=== PATIENT | female | born 1945 | race Caucasian/White ===

== ENCOUNTER 2016-08-17 15:00 | Inpatient (IN) | payer MEDICARE, OTHER ==
[~2016-08-17] VITALS: Ht 166.6 cm; Wt 73.2 kg
--- NOTE | ~2016-08-17 | DS ---
PATIENT'S NAME: SELENE CALIXTO [facility] AGE: 71 Y [address] ROOM: [address] [address] LOCATION: [facility] ADMIT DATE: 08/21/2016 Discharge Summary DISCHARGE DATE: 08/23/2016 FAMILY PHYSICIAN: Wendy Moulton ATTENDING PHYSICIAN: Marylin Ceron REASON FOR ADMISSION: The patient was a scheduled admission for an elective procedure. The procedure was lumbar laminectomy. The patient had presented with back pain radiating down the leg. TREATMENT RENDERED: The patient was taken to the operating room. She underwent laminectomy and decompression of her lumbar spinal nerves. The procedure was uncomplicated. The patient's postoperative course was uneventful. She did well and was released home on August 23, 2016. I will follow up her off in [place] when I go there in September. FINAL DIAGNOSIS: Lumbar spinal stenosis, status post lumbar laminectomy. MD LALITA SMYTH/jonyl /[id number] d: 08/27/16 0025 t: 09/07/16 0833, DISCHARGE SUMMARY
--- NOTE | ~2016-08-17 | OR ---
PATIENT'S NAME: SELENE CALIXTO [facility] AGE: 71 Y [address] ROOM: [address] [address] LOCATION: [facility] ADMIT DATE: 08/21/2016 OR/Procedure Report DISCHARGE DATE: FAMILY PHYSICIAN: Wendy Moulton ATTENDING PHYSICIAN: Marylin Ceron SURGEON: Marylin Ceron MD IMAGING ASSISTANT: Nasreen Norris. DATE OF PROCEDURE: 08/21/2016 PREOPERATIVE DIAGNOSIS: Lumbar spinal stenosis. POSTOPERATIVE DIAGNOSIS: Lumbar spinal stenosis. PROCEDURES PERFORMED: 1. Bilateral laminectomy with decompression of neural elements and foraminotomy without diskectomy at L3-4. 2. Bilateral laminectomy with decompression of neural elements and foraminotomy without diskectomy at L4-5. 3. Use of operative microscope. ANESTHESIA: General. ANESTHESIA PROVIDER: Henrique Weeks M.D. HISTORY: The patient is a 71-year-old female who presented with lower back and left leg pain. Symptoms have been present for at least 3 years. She had MRIs done in 2013 and more recently in July of this year. The more recent study showed progression of the stenosis compared to the earlier MRI. Given the patient's unrelenting symptoms and the progression of her stenosis on MRI scan, surgery was recommended. The above procedures together with the benefits and risks were discussed with the patient; and with her consent, she was brought to the operating room for surgery. PROCEDURE IN DETAIL: In the operating room, the patient was placed in a supine position. Anesthesia was induced. She was intubated. The patient was then turned to a prone position on a Victorino table taking care to protect all pressure points. The incision line was marked out in the midline of the lower back and the whole area was prepped and draped in a sterile fashion. Local anesthesia was infiltrated along the incision line. The #10 blade was used to open the incision and deepen it to the fascial layer. Self-retaining retractor was placed. The Bovie was then used to open the fascia and deepen the incision until the spinous processes became visible. The paraspinous muscles were dissected off the spinous processes and laminae of L3, L4, and L5. Intraoperative x-ray was obtained to confirm that we were at the desired levels. The self-retaining retractors were then adjusted and the laminectomy was carried out bilaterally at L3, L4, and L5. The Leksell rongeur was used to remove the spinous processes and initial part of the midline lamina. The PATIENT'S NAME: SELENE CALIXTO [facility] AGE: 71 Y [address] ROOM: [address] [address] LOCATION: [facility] ADMIT DATE: 08/21/2016 OR/Procedure Report DISCHARGE DATE: FAMILY PHYSICIAN: Wendy Moulton ATTENDING PHYSICIAN: Marylin Ceron Kerrison rongeur was then used to continue the laminectomy. The ligamentum flavum was dissected off the ventral surface of the lamina to ensure that the Kerrison rongeur did not sisal picker the dura accidentally. The patient had significant stenosis at both L3-4 and L4-5. The decompression was continued into the foramen. The L4 and L5 nerve roots were clearly seen going out into their respective foramina without any compression. The edges of the bone where laminectomy was done were then waxed thoroughly. Fibrillar was used to control bleeding from the epidural veins. Irrigation was used to wash out the debris. The incision was closed in layers using appropriate suture materials. A sterile dressing was applied. The patient's anesthesia was reversed. She was extubated and taken to the recovery room to complete her recovery. I was present at and performed every aspect of this procedure assisted at some stages by operating room nurses. There were no apparent intraoperative complications. Swabs, needles, and instruments were all accounted for the end of the case. Estimated blood loss was 300 mL and there was no reason for blood transfusion. I expect the patient to benefit from this procedure. MD LALITA SMYTH/aissatou /[id number] CC: AMANDA Lopez d: 08/22/16 0023 t: 08/26/16 0012, OPERATIVE SUMMARY
[~2016-08-17 15:00] MED LIST: ARIMIDEX1 MG PO; CALCIUM 600 +1 EA12 PO; CLARITIN10 MG PO; ENALAPRIL-HCTZ1 EACH PO; LIPITOR10 MG PO; MOBIC15 MG PO; NASONEX NASAL S17 GM NOSE; NORVASC5 MG PO; PAXIL20 MG PO; ULTRAM50 MG PO
--- NOTE | 2016-08-21 15:57 | NUR ---
Significant Event: Alert and oriented x3. Follows commands. Moves all extremities to command and spontaneously. Dressing to lumbar back C/D/I. Ambulates 1 assist to bathroom and up in villegas ways. PT/OT worked with patient. IV R) wrist infusing NS at 75 ml/hr. Activity as tolerated. Regular diet. Voids per bathroom. Family at bedside. Cooperative with cares. Follow up: home tomorrow?
--- NOTE | 2016-08-22 01:47 | NUR ---
Significant Event: AAOx3, denies N/T. PERRLA 3mm brisk. Equal moderate strength to upper extremities. LLE slightly weaker with plantar/dorsiflexion. Systolic 120's, HR 70's. L.S. clear and diminished in lower lobes, on RA. B.S. active, last BM 08/20. Urinates per 1PA walker to BR no complications. Dressing lumbar back C/D/I, can be changed if needed. PIV R) hand SL'd. Takes meds whole. Gave 2 [place]'s at 2114 for 6/10 lumbar pain. Follow up: Plan for dismissal home today or tomorrow
--- NOTE | 2016-08-22 16:21 | NUR ---
Significant Event: Patient up to chair/BR and up in villegas with walker and one assist. Gait steady. Dressing dry and intact to back. CSM WNL. Cascilla 2 tabs last at 1311. Follow up:
--- NOTE | 2016-08-23 05:21 | NUR ---
NEURO: A&O x3. Denies n/t. PERRLA. Equal strenth bilateral UE & LE. CARDIO: Tele. VSS. RESP: Clear. 1 Ltr overnight d/t sats 89% GI/: Voiding well. Fatus. No nausea. SKIN: Dressing to lower back CDI. ACTIVITY: SBA with GB and walker PAIN: [place] Q4H PRN- last at 0310 PLAN: Discharge to home today.
--- NOTE | 2016-08-23 13:49 | NUR ---
Significant Event:vss alert and oriented. up with sba walker. pain controlled with medications. Follow up: home today
[2016-08-23] MEDS ORDERED: NORCO 5-325 TA1 EACH PO (14:34)
== END 2016-08-23 15:53 | disposition disaster alternative care site (69) | DRG 517 ==
LOC: GNTU 08-21 05:53 → G3N 08-21 05:53 → GNTU 08-21 05:53
PROVIDERS: ADMIT Neurological Surgery
PROC: 01NB0ZZ Release Lumbar Nerve, Open Approach (ICD-10-PCS; principal; 2016-08-21)
DX: M48.06 Spinal stenosis, lumbar region (principal); C50.912 Malignant neoplasm of unspecified site of left female breast; I10 Essential (primary) hypertension; N28.89 Other specified disorders of kidney and ureter; M47.26 Other spondylosis with radiculopathy, lumbar region; F32.9 Major depressive disorder, single episode, unspecified; H81.09 Meniere's disease, unspecified ear; E78.5 Hyperlipidemia, unspecified; R87.610 Atypical squamous cells of undetermined significance on cytologic smear of cervix (ASC-US); Z72.0 Tobacco use; Z79.899 Other long term (current) drug therapy; Z88.1 Allergy status to other antibiotic agents; Z98.890 Other specified postprocedural states
CPT/HCPCS: G0378; G8978; G8979; G8980; G8987; G8988; G8989; J0690; J1040; J1100; J2001; J2405; J2795; J7120